=== PATIENT | male | born 1945 | race Caucasian/White ===

== ENCOUNTER → 2017-02-22 | Outpatient (CLI) | payer OTHER, MEDICARE ==
[~2017-02-22] MED LIST: FLV1 PO; FRS/40 PO; METO50TA16 PO; NAPR1TAB9 PO; PANT40TA PO; SIMV40TA2 PO; TYLOTC500 PO; WARF5TAB90 PO
[2017-02-22 13:43] LABS: INR 2.1 (0.9-1.1); PROTHROMBIN TIME (PATIENT) 23.3 SECONDS (9.0-12.0)
== END | disposition home or self-care (01) ==
LOC: C.LABBC 10:48
PROVIDERS: ATTEND Dentist Oral and Maxillofacial Surgery
DX: Z79.01 Long term (current) use of anticoagulants (principal); Z51.81 Encounter for therapeutic drug level monitoring

== ENCOUNTER → 2017-07-06 | Outpatient (CLI) | payer OTHER ==
[2017-07-06 10:40] LABS: BASO % 0.9 %; BASO ABS # 0.04 K/uL (0-0.2); COMPLETE YES; EOS % 3.9 %; HEMATOCRIT 45.2 % (42-52); IG% 0.2 %; LYMPH % 25.7 %; LYMPH ABS # 1.18 K/uL (1.2-3.4); MEAN CELL VOLUME 94.6 fL (80-100); MEAN CORPUSCULAR HGB CONC 33.8 g/dl (32-36); MEAN PLATELET VOLUME 11.2 fL (7.4-10.4); NEUT % 59.3 %; PLATELET COUNT 198 K/uL (130-400); RED BLOOD COUNT 4.78 M/uL (4.7-6.1); WHITE BLOOD COUNT 4.59 K/uL (4.8-10.8)
[2017-07-06 11:00] LABS: ALT/SGPT 35 U/L (12-78); BLOOD UREA NITROGEN 18 mg/dl (7-18); BUN/CREATININE RATIO 18.6 (10-20); CALCIUM 8.4 mg/dl (8.5-10.1); CARBON DIOXIDE 26 mmol/L (21-32); CHLORIDE 105 mmol/L (98-107); CHOLESTEROL 156 mg/dl (0-200); CREATININE 0.96 mg/dl (0.60-1.40); GLUCOSE 93 mg/dl (70-99); POTASSIUM 4.2 mmol/L (3.5-5.1); SODIUM 138 mmol/L (136-145)
[2017-07-06 11:11] LABS: ALB/GLOB RATIO 1.2 (0.9-2); ALKALINE PHOSPHATASE 66 U/L (45-117); AST/SGOT 28 U/L (15-37); HDL CHOLESTEROL 39 mg/dl; LDL CHOLESTEROL CALCULATED 92 mg/dl; PROSTATE SPECIFIC ANTIGEN 0.757 ng/ml (0.000-4.000); TRIGLYCERIDES 127 mg/dl (0-150); VERY LOW DENSITY LIPOPROT CALC 25 mg/dl
[2017-07-06 13:20] LABS: ESTIMATED AVERAGE GLUCOSE 108 mg/dl; HA1C FLAG Normal (Normal)
== END | disposition home or self-care (01) ==
LOC: C.LABBC 08:51
PROVIDERS: ATTEND Internal Medicine
DX: Z11.59 Encounter for screening for other viral diseases (principal); I10 Essential (primary) hypertension; G47.33 Obstructive sleep apnea (adult) (pediatric); E78.5 Hyperlipidemia, unspecified; I48.2 Chronic atrial fibrillation; K22.2 Esophageal obstruction; Z68.41 Body mass index [BMI] 40.0-44.9, adult; Z79.01 Long term (current) use of anticoagulants

== ENCOUNTER → 2017-10-16 | Outpatient (CLI) | payer OTHER ==
--- NOTE | 2017-10-16 12:51 | DIAGNOSTIC IMAGING REPORT ---
TWO VIEW CHEST CLINICAL HISTORY: Cough. FINDINGS: PA and lateral chest radiographs are compared to study dated 03/27/2015. The heart is markedly enlarged and there is atherosclerotic calcification of the thoracic aorta the pulmonary vasculature is noncongested. Patchy airspace consolidation is seen in the right middle lobe. The left lung is grossly clear noting dependent atelectasis. No pleural effusion is identified. There is no pneumothorax. The skeletal structures are osteopenic. The bony thorax appears intact. Degenerative change is seen throughout the thoracic spine. IMPRESSION: 1. Findings are consistent with right middle lobe pneumonia. Radiographic follow-up to resolution is recommended. 2. Cardiomegaly without radiographic evidence of congestive failure. Electronically signed by: Max Mosher M.D. 10/16/2017 12:50 PM Dictated Date/Time: 10/16/2017 12:49 PM
== END | disposition home or self-care (01) ==
LOC: C.RADBC 12:36
PROVIDERS: ATTEND Nurse Practitioner Adult Health
DX: R05 Cough (principal)

== ENCOUNTER → 2017-11-06 | Outpatient (CLI) | payer OTHER ==
--- NOTE | 2017-11-06 12:13 | DIAGNOSTIC IMAGING REPORT ---
CHEST 2 VIEWS ROUTINE HISTORY: Pneumonia. Follow-up. COMPARISON: Chest 10/16/2017. FINDINGS: Near complete resolution of the right middle lobe airspace opacity consistent with a resolving pneumonia. No new focal lung consolidations. The left lung is clear. The heart remains mildly enlarged. No pleural effusions. No pneumothorax. IMPRESSION: Near complete resolution of the right middle lobe opacity consistent with a resolving pneumonia. Electronically signed by: Aguilar Linder M.D. 11/06/2017 12:11 PM Dictated Date/Time: 11/06/2017 12:10 PM
== END | disposition home or self-care (01) ==
LOC: C.RADBC 11:44
PROVIDERS: ATTEND Nurse Practitioner Adult Health
DX: J18.9 Pneumonia, unspecified organism (principal)

== ENCOUNTER → 2017-12-14 | Outpatient (CLI) | payer OTHER ==
[2017-12-14 11:05] LABS: HEMOGLOBIN 15.7 g/dL (14.0-18.0); MEAN CELL VOLUME 95.7 fL (80-100); MEAN CORPUSCULAR HEMOGLOBIN 33.4 pg (25-34); MEAN CORPUSCULAR HGB CONC 34.9 g/dl (32-36); MEAN PLATELET VOLUME 11.2 fL (7.4-10.4); PLATELET COUNT 172 K/uL (130-400); RED CELL DISTRIBUTION WIDTH SD 49.5 fL (36.4-46.3); WHITE BLOOD COUNT 4.65 K/uL (4.8-10.8)
[2017-12-14 11:28] LABS: BLOOD UREA NITROGEN 16 mg/dl (7-18); CALCIUM 8.3 mg/dl (8.5-10.1); CARBON DIOXIDE 28 mmol/L (21-32); CREATININE 0.83 mg/dl (0.60-1.40); GLUCOSE 87 mg/dl (70-99); POTASSIUM 4.1 mmol/L (3.5-5.1); SODIUM 138 mmol/L (136-145)
== END | disposition home or self-care (01) ==
LOC: C.LABBC 08:38
PROVIDERS: ATTEND Internal Medicine Interventional Cardiology
DX: Z01.818 Encounter for other preprocedural examination (principal); Z79.01 Long term (current) use of anticoagulants

== ENCOUNTER 2017-12-21 06:27 | Day surgery (SDC) | payer OTHER ==
[~2017-12-21] VITALS: Ht 182.9 cm; Wt 127.1 kg
[~2017-12-21 06:27] MED LIST changes: +SODIUM CHLORIDE 0.9% 1000ML 1,000 ML IV SCH
[2017-12-21 06:52] VITALS: BP 148/87; PULSE 68; TEMP 36.6; O2SAT 96; Ht 182.9 cm; Wt 127.1 kg
[2017-12-21] MEDS ORDERED: LIDOCAINE HCL 1% 20 ML VIAL ONE (07:18)
[2017-12-21] MEDS ORDERED: LIDOCAINE/EPINEPHRINE 1% INJ 50 ML VIAL ONE ×2 (07:18→07:21)
[2017-12-21] MEDS ORDERED: SODIUM BICARB 8.4% INJ 50 MEQ/50 ML SYR IV ONE (07:19)
[2017-12-21] MEDS ORDERED: MIDAZOLAM HCL 1 MG/ML 2ML VIAL ONE (07:19)
[2017-12-21] MEDS ORDERED: FENTANYL CITRATE INJ 50 MCG/1 ML 2 ML VIAL ONE (07:19)
--- NOTE | 2017-12-21 07:19 | History and Physical ---
History & Physical Date Dec 21, 2017. Chief Complaint Venous insufficiency History of Present Illness Mr. Starr is a very pleasant 72-year-old white male with a history of Chronic Atrial Fibrillation on coumadin, Obesity, Hypertension, Dyslipidemia, Hyperhomocysteinemia with prior DVT, Hiatal Hernia s/p balloon dilatation of Schatzki's ring, Osteoarthritis here today for continued management of her chronic venous insufficiency. Patient previously seen for worsening bilateral lower edema despite increasing lasix, compression stockings. He typically takes his Lasix 3 days a week. Venous reflux ultrasound showed dilated/refluxing bilateral GSVs and SSVs. Past Medical/Surgical History Medical Problems: (1) Acute Venous Embolism & Thrombosis Deep Vessels Distal Le (2) Atrial Fibrillation (3) Diverticulosis Colon (W/O Ment Of Hemorrhage) (4) Hyperlipidemia Nec/Nos Surgical Problems: (1) Knee Joint Replacement Status Allergies Coded Allergies: No Known Allergies (Verified , 12/21/17) Home Medications Scheduled Furosemide (Lasix), 40 MG PO WK Metoprolol Tartrate (Lopressor) (Lopressor), 50 MG PO BID Naproxen (Aleve), 440 MG PO DAILY Pantoprazole (Protonix), 40 MG PO QAM Simvastatin (Zocor), 40 MG PO MWF Warfarin Sodium (Coumadin), 5 MG PO QPM Physical Examination Skin: warm/dry Head: normocephalic Respiratory/Chest: lungs clear, normal breath sounds Cardiovascular: + irregularly irregular Abdomen / GI: normal bowel sounds Extremities: + pertinent finding (lower extremity edema) Diagnosis Chronic venous insufficiency ASA Classification: ASA Class II Plan of Treatment Bilateral GSV RFA
--- NOTE | 2017-12-21 07:20 | Pre Sedation Assessment ---
Pre Sedation Assessment General Date of Sedation: Dec 21, 2017. Vital Signs Past 12 Hours Date Time Temp Pulse Resp B/P (MAP) Pulse Ox O2 Delivery O2 Flow Rate FiO2 12/21/17 06:52 36.6 68 20 148/87 (107) 96 Room Air Review Cardiovascular: no edema, + irregularly irregular Lungs: chest non-tender, lungs clear Pre-Sedation Airway Assessment Smoking Status: Never Smoker Hx of Sleep Apnea: Yes Hx of difficult intubation: No Short Thick Neck: No Oral Cavity: Capped Teeth Mallampati Classification: Class III ASA Classification: Class II NPO Status Date of Last Intake of Fluids: Dec 20, 2017 Time of Last Intake of Fluids: 1999 Date of Last Intake of Solids: Dec 20, 2017 Time of Last Intake of Solids: 1999 Procedure Planning Contraindications for Sedation: None Current Medications Reviewed: Yes Notes The planned sedation has been discussed with the patient. Informed Consent was obtained. I have identified the patient, determined the appropriateness of sedation and have assessed the patient immediately prior to the procedure. All medicine(s) and interventions are by my order.
[2017-12-21] MEDS ORDERED: LIDOCAINE HCL 1% 20 ML VIAL INJ ONE (09:12)
[2017-12-21] MEDS ORDERED: ORM MISCELLANEOUS MED XX ONE (09:15)
--- NOTE | 2017-12-21 09:16 | Post Sedation Assessment ---
Post Sedation Assessment General Date of Sedation Dec 21, 2017. Vital Signs: Vital Signs Past 12 Hours Date Time Temp Pulse Resp B/P (MAP) Pulse Ox O2 Delivery O2 Flow Rate FiO2 12/21/17 09:10 66 16 133/83 95 Room Air 12/21/17 09:05 Mask 12/21/17 09:00 Mask 12/21/17 08:55 Mask 12/21/17 08:50 Mask 12/21/17 08:45 Mask 12/21/17 08:40 Mask 12/21/17 08:35 Mask 12/21/17 08:30 Mask 12/21/17 08:25 Mask 12/21/17 08:20 Mask 12/21/17 07:59 Mask 12/21/17 06:52 36.6 68 20 148/87 (107) 96 Room Air Post Procedure Recovery Score Activity: (2) Moves 4 extremities * Respiration: (2) Deep breath/cough Circulation: (2) +/-20% PreAnes Value Consciousness: (2) Fully Awake Oxygen Saturation: (2) > 92% On Room Air Post Anesthesia Score: 10 Discharge Sedation Level of Care: Fast Track Phase II Post Sedation Plan On clinical assessment, the patient appears to have tolerated the sedation without complications. Patient is recovering as anticipated. Patient will continue to be monitored by nursing and may be discharged when sedation discharge criteria are met per below protocol. Upon Completions of procedure and additional 15 minutes continue every 5 minute vital signs and the P.A.R. score; then discharge to a Phase I or Fast Track to Phase II per the following guidelines: * Discharge Patient to appropriate Phase II area if PAR is 8 or greater or return to pre- procedure baseline. The post - procedure orders will be as directed. * If PAR score is less than 8 or not return to pre-procedure baseline then patient will follow Phase I monitoring till PAR is reached for Phase II. The Phase I may be done in procedure room or may call to secure a Phase I area. * If naloxone or flumazenil are used for reversal, hold in Phase I for an additional 60 -120 minutes before discharge to Phase II. Please call the Sedation Physician to re-evaluate and complete post-note for discharge to Phase II area. Do NOT discharge from procedure sedation or Phase 1 until post- sedation evaluation note is complete by procedure /sedation MD Sedation Discharge Instructions to be given to the patient at discharge to home.
--- NOTE | 2017-12-21 09:19 | [facility] Operative Report ---
Operative Report Operative Date Dec 21, 2017. Pre-Operative Diagnosis Venous Insufficiency Post-Operative Diagnosis Venous Insufficiency Procedure(s) Performed Bilateral Lower Extremity Greater Saphenous Vein Radio Frequency Ablation Surgeon Dr. Mcleod Solar Energy Engineer Surgeon(s) Dr. Mcleod Estimated Blood Loss 5 ml Findings Dilated bilateral GSV with distal varices Specimens none Drains None Anesthesia Type Local Complication(s) none Disposition no Recovery Room / PACU Description of Procedure BILATERAL GSV RADIOFREQUENCY ABLATION US guided access Left GSV below the knee. Catheter inserted, 2.5 cm from SFJ. Tumescent injected. US confirmed not in deep system. 4:40, 14 cycles of RFA right GSV. No complications. Patient tolerated well. US confirmed no DVT post procedure. US guided access Right GSV below the knee. Unable to pass catheter to more proximal vessel due to tortuosity/spasm 2nd access site in Right thigh Catheter inserted, 2.9 cm from SFJ. Tumescent injected. US confirmed not in deep system. 2:00, 6 cycles of RFA right GSV. No complications. Patient tolerated well. US confirmed no DVT post procedure. SUMMARY: 1. Successful bilateral GSV RFA I attest to the content of the Intraoperative Record and any orders documented therein. Any exceptions are noted below.
--- NOTE | 2017-12-21 09:21 | Discharge Instructions ---
Discharge Instructions Procedure Procedure Date: Dec 21, 2017. Reason for Visit: Venous Insufficiency. Discharge Discharge Date: Dec 21, 2017. Discharge Diagnosis: Venous insufficiency Last Recorded Wt (Kilograms): 127.1 Anesthesia Post Anesthesia Instructions: If you have had General Anesthesia or IV Sedation: * Do not drive today. * Resume driving when surgeon permits. * Do not make important decisions or sign legal documents today. * Call surgeon for: 1. Temperature elevations greater than 101 degrees F. 2. Uncontrollable pain. 3. Excessive bleeding. 4. Persistent nausea and vomiting. 5. Medication intolerance (nausea, vomiting or rash). * For nausea and vomiting use only clear liquids such as: tea, soda, bouillon until nausea subsides, then gradually increase diet as tolerated. * If you have any concerns or questions, call your surgeon's office. If physician is unavailable and it is an emergency, call 911 or go to the nearest emergency room. Instructions Activity Recommendations: resume regular activity Recommended Home Diet: resume previous diet, low sodium, low cholesterol Allergies: Coded Allergies: No Known Allergies (Verified , 12/21/17) Follow Up Additional Instructions: Follow instructions as outlined in paperwork from Dr. Mcleod' office. Up walking today. Follow up Ultrasound as scheduled. KIM wrap until scheduled ultrasound Post ultrasound wear compression stockings indefinitely. Any severe pain, present to the emergency room for evaluation for DVT. Follow-up with: As scheduled Beto Morrison Recommendations: Call your doctor if: * Temperature above 101 degrees * Pain not relieved by pain medicine ordered * There is increased drainage or redness from any incision * You have any unanswered questions or concerns. Your Doctors Instructions noted above were prepared by provider Manuel Mcleod. Patient Signature Section: Patient Instructions Signature Page Patrick Starr Patient (or Guardian) Signature/Date: I have read and understand the instructions given to me by my caregivers. Caregiver/RN/Doctor Signature/Date: The above-named patient and/or guardian has received patient instructions on this date. + Original Patient Signature Page (only) stays with chart. Please make copy for patient.
[2017-12-21 09:30] VITALS: BP 108/63; PULSE 64; TEMP 36.6; O2SAT 95
[2017-12-21 10:00] VITALS: BP 115/63; PULSE 66; TEMP 36.6; O2SAT 96
--- NOTE | 2017-12-21 13:54 | DIAGNOSTIC IMAGING REPORT ---
INTRAOPERATIVE ULTRASOUND CLINICAL HISTORY: Ultrasound guidance for venous ablation. FINDINGS: 3 sonographic images from a right lower extremity venous ablation procedure are presented. The imaged portions of the common femoral vein and the greater saphenous vein at the junction with the common femoral vein appear patent. There is 2.9 cm from the ablation site to the junction with the common femoral vein. The research chemical engineer was present during the procedure. IMPRESSION: Intraoperative images from right lower extremity venous ablation as above. See operative report for detailed findings. Electronically signed by: Max Mosehr M.D. 12/21/2017 1:53 PM Dictated Date/Time: 12/21/2017 1:50 PM
== END 2017-12-21 10:25 | disposition home or self-care (01) ==
LOC: C.ACU 06:27
PROVIDERS: ATTEND Internal Medicine Interventional Cardiology
DX: I87.2 Venous insufficiency (chronic) (peripheral) (principal); I48.2 Chronic atrial fibrillation; E66.9 Obesity, unspecified; I10 Essential (primary) hypertension; E78.5 Hyperlipidemia, unspecified; Z86.718 Personal history of other venous thrombosis and embolism; M19.90 Unspecified osteoarthritis, unspecified site; Z79.01 Long term (current) use of anticoagulants; Z98.890 Other specified postprocedural states

== ENCOUNTER 2025-05-20 09:02 | Observation (INO) ==
--- NOTE | 2025-05-20 09:42 | Emergency Department Note ---
Impression & Plan Chest pain, Acute pain of left shoulder, Ambulatory dysfunction ED Provider Note HISTORY OF PRESENT ILLNESS: Patient is a 79-year-old male presenting with chest pain. Patient reports that he fell 6 days ago. He was evaluated in the emergency department and did not have any acute traumatic injuries. He states that he had lost his footing and fell, landing and striking the left side of his body against a cement wall and hitting his left hip on a step. He is on aspirin and warfarin. He states that today he woke up and had significant pain in his chest and upper back region. He locates the pain in the substernal region of his chest. Denies any shortness of breath. He denies any lightheadedness or dizziness. He states he had difficulties getting around today secondary to increasing pain in his hip. Denies any abdominal pain, nausea or vomiting. He reports he took a dose of oxycodone at 6 AM with little relief in his symptoms. He denies any lightheadedness or dizziness. Denies any headache or changes in vision. Patient reports he has been ambulating at home with a walker since his fall. ROS: as above PHYSICAL EXAM: Constitutional: Patient appears in no acute distress. HENT: Head: Normocephalic and atraumatic. Eyes: EOMI, PERRL Mouth/Throat: Mucous membranes moist. Neck: Trachea midline. Neck supple. No midline cervical spine tenderness to palpation. Cardiovascular: Irregular rhythm. No murmurs, rubs or gallops. Intact distal pulses. Pulmonary/Chest: No respiratory distress. Breath sounds clear and equal bilaterally. No wheezes or rales. Left chest wall is tender to palpation. Abdominal: Abdomen soft, no tenderness, rebound or guarding. Musculoskeletal: No edema, tenderness or deformity noted. Skin: Warm and dry. Ecchymosis to the left upper anterior chest wall. Ecchymosis to the left lateral hip. Psychiatric: Appropriate mood and affect for situation. Neurological: Alert and keenly responsive. CN II-XII grossly intact, moving all extremities equally and fully. MDM: - Vitals signs showed hypertension and tachycardia. - History obtained via patient. History as above. - Chronic conditions affecting care: HTN; HLD; LAURA; GERD; Afib - Differential diagnoses include, but are not limited to: Acute coronary syndrome; pulmonary embolism; dissection; tension pneumothorax; esophageal rupture; pneumonia; rib fracture - Order placed for continuous cardiac monitoring. At this time, monitor showed rate of 98 bpm with irregular rhythm, per my interpretation. - External medical records reviewed. CT abdomen/pelvis obtained on 05/16/2025 was reviewed. Patient noted to have gluteal muscle hematoma. - EKG image interpreted by myself showed atrial fibrillation. Rate 98 bpm. QT 398. No acute ischemic changes. Not have a right bundle branch block. - Laboratory workup interpreted by myself showed slight leukocytosis (WBC 10.81); slight anemia (Hgb 13.1); elevated INR (1.2); stable electrolytes; normal troponin; normal AST/ALT; normal lipase; elevated bilirubin (1.4) - CXR image interpreted by myself is negative for pneumothorax, per my interpretation. Radiology notes cardiomegaly. - CT chest with IV contrast shows a subacute/healing fracture of the left anterior lateral sixth rib. No other acute pathology. - Patient given 50 mcg IV fentanyl in ER. On reassessment, he still complaining of pain in his left shoulder. X-ray of the left shoulder was ordered. - Discussed results with the patient. He has been ambulating with a walker since his fall, so unsure if his bilateral shoulder pain is secondary to using the walker. However, the patient reports that the oxycodone that he was prescribed previously has not been helping his pain and he feels like he cannot tolerate this at home. Will discuss case with hospitalist service. - Xray left shoulder negative for acute fracture or dislocation. Noted to have moderate to severe left shoulder osteoarthritis. - Discussion was had with registered nurse hh case manager about patient's case and need for admission - Hospitalist consulted for admission - Patient admitted to [facility] hospitalist service for further evaluation and management. ASSESSMENT AND PLAN: Diagnosis: Chest pain; acute left shoulder pain; ambulatory dysfunction Plan: Admit Past Med/Surg History Problem List (Updated 05/20/25 @ 12:41 by Desire Tadeo MD) Ambulatory dysfunction (Acute) Acute pain of left shoulder (Acute) Chest pain (Acute) Supratherapeutic INR (Acute) Hematoma of left buttock (Acute) Esophageal dysphagia JACK (dyspnea on exertion) Arthritis of foot History of colon polyps Family history of colonic polyps Encounter for pre-operative examination Rash Fever Suspected COVID-19 virus infection Colon polyps Atrial fibrillation, permanent (Acute) Venous insufficiency (Chronic) BMI 40.0-44.9, adult (Chronic) Hiatal hernia (Chronic) Vitamin D deficiency (Chronic) Elevated parathyroid hormone (Chronic) Elevated TSH (Chronic) GERD with stricture (Chronic) Chronic anticoagulation (Chronic) Severe obstructive sleep apnea (Chronic) Hyperlipidemia LDL goal <100 (Chronic) HTN (hypertension) (Chronic) Schatzki's ring (Chronic) Osteoarthritis (Chronic) Medical History Chronic venous insufficiency Schatzki's ring Osteoarthritis Chronic anticoagulation History of colonic polyps GERD (gastroesophageal reflux disease) no meds Deep vein thrombosis (DVT) S/P LEFT HILDA, 20 YEARS AGO, PT REMAINS ON COUMADIN (for a. fib) Sleep apnea non compliant with CPAP Hyperlipidemia Atrial fibrillation On Coumadin/metoprolol > no pacer > follows with [facility] History of colonoscopy History of total hip replacement BILATERAL Hx of total knee arthroplasty bilat S/P lumbar laminectomy History of esophagogastroduodenoscopy With dilatation History of discectomy lumbar History of herniorrhaphy Ventral hernia repair Family History Unknown Atrial fibrillation Father Myocardial infarction Brother Kidney disease Other No family history of adverse response to anesthesia Denies family history of Ovarian cancer Prostate cancer Diabetes Breast cancer Lung cancer Colorectal cancer Hypertension Stroke Social History Smoking Status: Never smoker Second Hand Exposure: No; Do You Dip or Chew Tobacco: No; Hx Alcohol Use: Yes Alcohol type: wine and hard liquor Alcohol Intake Frequency: 2-3 x/Week Alcohol Intake Frequency Comment: once a week Hx Substance Use: No Preferred Language: [place] Communication Ability: Effective Visual Impairment: No Limitations Hearing Ability: Normal Tobacco Curer Required: No Beliefs That Will Affect Care: None marital status: Current Living Situation: Spouse current occupational status: retired How many Children do You have: 2 Feels Safe at Home: Yes Childhood Exposure to Second-Hand Smoke: Yes Diet: regular Diet Comment: regular caffeine: Yes (iced tea) during the past year weight has: decreased > 10 lbs Dental Care, Regularly: Yes Physical Activity Frequency: 3-4 Times per Week Seatbelt Use: always Sunscreen Use: Yes Assistive Devices: Glasses Allergies Allergies Allergy/AdvReac Type Severity Reaction Status Date / Time No Known Drug Allergies Allergy Verified 05/20/25 11:39 Home Meds Home Medications Medication Instructions Recorded Confirmed cholecalciferol (vitamin D3) 25 25 mcg PO QAM 10/02/23 05/20/25 mcg (1,000 unit) capsule furosemide 40 mg tablet 40 mg PO DAILY PRN Edema 12/31/24 05/20/25 atorvastatin 40 mg tablet 40 mg PO QAM 05/20/25 05/20/25 pantoprazole 40 mg tablet,delayed 40 mg PO DAILYBB 05/20/25 05/20/25 release warfarin 5 mg tablet (Jantoven) 5 mg PO QPM 05/20/25 05/20/25 Previous Rx's Medication Instructions Recorded metoprolol tartrate 50 mg tablet 50 mg PO BID #180 tabs 12/26/22 Results & Data (ED) Vital Signs Vital Signs - 24 hr 05/20/25 08:43 05/20/25 08:45 05/20/25 09:22 Temperature 36.8 C 36.8 C Temperature Source Oral Oral Pulse Rate 103 H 98 H Pulse Rate [Right Finger] 108 H Respiratory Rate 17 16 Respiratory Effort / Characteristics Non-Labored Non-Labored Respiratory Depth Normal Normal Respiratory Pattern Regular Blood Pressure 148/83 H Blood Pressure [Right Arm] 148/83 H Blood Pressure Mean 104 Blood Pressure Mean [Right Arm] 104 Pulse Oximetry 97 93 Oxygen Delivery Method Room Air Room Air Sepsis Recent Fever Within 48 Hours No Sepsis New/Unexplained Change in Mental Status No Sepsis Action Taken by Nursing No Action Required 05/20/25 10:45 05/20/25 11:57 Temperature Temperature Source Pulse Rate Pulse Rate [Right Finger] 90 105 H Respiratory Rate 16 16 Respiratory Effort / Characteristics Respiratory Depth Respiratory Pattern Blood Pressure Blood Pressure [Right Arm] 134/82 168/98 H Blood Pressure Mean Blood Pressure Mean [Right Arm] 99 121 Pulse Oximetry 97 Oxygen Delivery Method Sepsis Recent Fever Within 48 Hours Sepsis New/Unexplained Change in Mental Status Sepsis Action Taken by Nursing Laboratory Data 05/20/25 09:30 05/20/25 09:30 Lab Results 05/20/25 Range/Units 09:30 WBC 10.81 H (4.8-10.8) K/ul RBC 4.01 L (4.70-6.10) M/uL Hgb 13.1 L (14.0-18.0) g/dl Hct 39.1 L (42.0-52.0) % MCV 97.5 (80.0-100.0) fL MCH 32.7 (25.0-34.0) pg MCHC 33.5 (32.0-36.0) g/dL RDW Std Deviation 46.5 H (36.4-46.3) fL RDW Coeff of Anna 13.1 (11.5-14.5) % Plt Count 210 (130-400) K/uL MPV 11.0 (9.4-12.4) fL Immature Gran % (Auto) 0.5 % Neut % (Auto) 84.2 % Lymph % (Auto) 5.8 % Parmer % (Auto) 8.3 % Eos % (Auto) 0.8 % Baso % (Auto) 0.4 % Neut # (Auto) 9.10 H (1.40-6.50) K/uL Lymph # (Auto) 0.63 L (1.20-3.40) K/uL Parmer # (Auto) 0.90 H (0.11-0.59) K/uL Eos # (Auto) 0.09 (0.00-0.50) K/uL Baso # (Auto) 0.04 (0.00-0.20) K/uL Immature Gran # (Auto) 0.05 (0.01-0.20) K/uL PT 12.4 H (9.0-12.0) Seconds INR 1.2 H (0.9-1.1) Sodium 139 (136-145) mmol/L Potassium 4.2 (3.5-5.1) mmol/L Chloride 104 (98-107) mmol/L Carbon Dioxide 27 (21-32) mmol/L Anion Gap 8 (3-11) BUN 16 (6-23) mg/dl Creatinine 0.72 (0.6-1.4) mg/dl Est Cr Clr Drug Dosing 118.6 ml/min eGFR 92.93 BUN/Creatinine Ratio 22.2 H (10-20) Glucose 102 H (70-99(Fasting)) mg/dl Calcium 8.9 (8.6-10.3) mg/dl Total Bilirubin 1.4 H (0.2-1.0) mg/dl AST 24 (13-39) U/L ALT 19 (7-52) U/L Alkaline Phosphatase 60 (34-104) U/L Troponin I High Sens 15.1 (0-20) pg/ml Total Protein 6.9 (6.0-8.3) gm/dl Albumin 3.7 (3.4-5.0) gm/dl Globulin 3.2 (2.5-4.0) gm/dl Albumin/Globulin Ratio 1.2 (0.9-2) Lipase 15 (11-82) U/L Administered Medications Discontinued Medications Fentanyl Citrate (Fentanyl Citrate Pf 100 Mcg/2 Ml Vial) 50 mcg IV NOW STA Stop: 05/20/25 09:19 Last Admin: 05/20/25 09:34 Dose: 50 mcg Documented By: erick Ioversol (Optiray 320 100ml) 94 ml IV ONCE ONE Stop: 05/20/25 10:58 Last Admin: 05/20/25 10:57 Dose: 94 ml Documented By: GIANNI Imaging Data Radiologist's Impression: Chest X-Ray 05/20/25 09:18 XR chest 1V portable HISTORY: 79 years-old Male Chest pain, nonspecific COMPARISON: 11/06/2017 TECHNIQUE: AP view of the chest FINDINGS: Cardiac silhouette is enlarged. No pneumothorax, pleural effusion or overt pulmonary edema. IMPRESSION: Cardiomegaly without acute process. ACT 112: Negative or not required by law. The above report was generated using voice recognition software. It may contain grammatical, syntax or spelling errors. Electronically signed by: Juan C Meredith M.D. 05/20/2025 9:[address] 05/20/25 09:59 CT SCAN OF THE CHEST WITH IV CONTRAST CLINICAL HISTORY: Fall. Chest pain. COMPARISON STUDY: Chest x-ray dated 05/20/2025 TECHNIQUE: Following the IV administration of 94 cc of Optiray 320, CT scan of the thorax was performed from the thoracic inlet to the upper abdomen. Images are reviewed in the axial, sagittal, and coronal planes. IV contrast was administered without complication. A dose lowering technique was utilized adhering to the principles of ALARA. There is streak artifact from the left arm which could not be elevated above the chest. The examination is compromised by motion artifact. CT DOSE: 1138.86 mGy.cm FINDINGS: Thyroid: Imaged portions of the thyroid gland are normal in size and attenuation. Thoracic aorta: There is atherosclerotic calcification of the thoracic aorta, which is normal in caliber and demonstrates standard 3-vessel arch anatomy. No dissection is seen. Pulmonary vasculature: The pulmonary trunk is normal in caliber. There are no filling defects identified in the central pulmonary vessels to indicate pulmonary embolus. Note that this examination was not protocoled for evaluation of the pulmonary arteries. Heart: The heart is enlarged and without pericardial effusion. The coronary arteries are densely calcified. Lungs and pleural spaces: Evaluation of the lung parenchyma is degraded by motion artifact. There is no airspace consolidation, pleural effusion, or pneumothorax. Secretions are noted in the trachea. There is bibasilar scarring/atelectasis. There are scattered calcified granulomas. Mediastinum: There is no mediastinal hematoma or lymphadenopathy. Brenda: Clear. Axillae: There is no axillary lymphadenopathy. Upper abdomen: Scattered hepatic cysts measuring up to 3.7 cm. Additional subcentimeter hepatic hypodensities also likely represent cysts but are too small for definitive characterization. A tiny hiatal hernia is noted. See report of abdominal CT performed concurrently for detailed intra-abdominal findings. Skeletal structures: The skeletal structures are osteopenic. There is a subacute/healing fracture of the left anterolateral sixth rib. No additional acute or subacute fracture is suspected involving the bony thorax. There are chronic/healed right-sided rib fractures. Degenerative change is seen in the shoulders and thoracic spine. Advanced degenerative change is seen at the sternoclavicular joints. No lytic or blastic bony lesions are seen. IMPRESSION: 1. There is a subacute/healing fracture of the left anterolateral 6th rib. 2. No additional acute or subacute fracture is seen. 3. There is no airspace consolidation, pleural effusion, or pneumothorax. 4. Cardiomegaly noting advanced coronary artery atherosclerosis. 5. Additional findings as above. ACT 112: Negative or not required by law. Electronically signed by: Max Mosher M.D. 05/20/2025 11:18 AM Shoulder X-Ray 05/20/25 12:08 XR shoulder LT min 2V routine CLINICAL HISTORY: Left shoulder pain s/p fall COMPARISON: Left shoulder radiographs May 26, 2011. FINDINGS: Alignment of the left shoulder is anatomic. No acute fractures are identified. There is moderate to severe osteoarthritis of the left acromioclavicular and glenohumeral joints. There are no osseous lesions. IMPRESSION: 1. No fracture or dislocation within the left shoulder. 2. Moderate to severe left shoulder osteoarthritis. ACT 112: Negative or not required by law. Electronically signed by: Grant Ricks M.D. 05/20/2025 12:33 PM Discharge Plan Visit Data Chief Complaint: Fall Stated Complaint: FALL ED Provider: Desire Tadeo Discharge Problem: Chest pain, Acute pain of left shoulder, Ambulatory dysfunction Condition: Fair Forms Stand Alone Forms: My [employer] Prescriptions Prescriptions: No Action metoprolol tartrate 50 mg tablet 50 mg PO BID Qty: 180 3RF cholecalciferol (vitamin D3) 25 mcg (1,000 unit) capsule 25 mcg PO QAM atorvastatin 40 mg tablet 40 mg PO QAM warfarin [Jantoven] 5 mg tablet 5 mg PO QPM pantoprazole 40 mg tablet,delayed release (DR/EC) 40 mg PO DAILYBB furosemide 40 mg tablet 40 mg PO DAILY PRN (Reason: Edema) Rx Instructions: TAKE ONE TABLET BY MOUTH EVERY DAY NEEDED FOR EDEMA Referrals Referrals: Kimmie Funez DO [Primary Care Provider] -
--- NOTE | 2025-05-20 09:48 | XRay Report ---
XR chest 1V portable HISTORY: 79 years-old Male Chest pain, nonspecific COMPARISON: 11/06/2017 TECHNIQUE: AP view of the chest FINDINGS: Cardiac silhouette is enlarged. No pneumothorax, pleural effusion or overt pulmonary edema. IMPRESSION: Cardiomegaly without acute process. ACT 112: Negative or not required by law. The above report was generated using voice recognition software. It may contain grammatical, syntax o r spelling errors. Electronically signed by: Juan C Meredith M.D. 05/20/2025 9:47 AM
[2025-05-20 09:58] LABS: Hematocrit (blood only) 39.1 % (42.0-52.0); Hemoglobin 13.1 g/dl (14.0-18.0); Immature Granulocytes # (auto) 0.05 K/uL (0.01-0.20); Immature Granulocytes % (auto) 0.5 %; Mean Corpuscular Hemoglobin 32.7 pg (25.0-34.0); Mean Corpuscular Volume 97.5 fL (80.0-100.0); Platelet Count 210 K/uL (130-400); RDW Standard Deviation 46.5 fL (36.4-46.3); Red Blood Count 4.01 M/uL (4.70-6.10); White Blood Count 10.81 K/ul (4.8-10.8)
[2025-05-20 10:14] LABS: Alanine Aminotransferase 19.0 U/L (7-52); Albumin Globulin Ratio 1.2 (0.9-2); Alkaline Phosphatase 60.0 U/L (34-104); Anion Gap 8.0 (3-11); Bilirubin,Total 1.4 mg/dl (0.2-1.0); Blood Urea Nitrogen 16.0 mg/dl (6-23); Calcium 8.9 mg/dl (8.6-10.3); Carbon Dioxide 27.0 mmol/L (21-32); Chloride 104.0 mmol/L (98-107); Creatinine Clr Calc Pharmacy 118.6 ml/min; Globulin 3.2 gm/dl (2.5-4.0); Glucose 102.0 mg/dl (70-99(Fasting)); Lipase 15.0 U/L (11-82); Potassium 4.2 mmol/L (3.5-5.1); Sodium 139.0 mmol/L (136-145); Total Protein 6.9 gm/dl (6.0-8.3)
[2025-05-20 10:25] LABS: INR 1.2 (0.9-1.1); Prothrombin Time 12.4 Seconds (9.0-12.0)
[2025-05-20] MEDS: OPTIRAY 320 100ml IV ONE (10:57)
--- NOTE | 2025-05-20 11:19 | CT Scan Report ---
CT SCAN OF THE CHEST WITH IV CONTRAST CLINICAL HISTORY: Fall. Chest pain. COMPARISON STUDY: Chest x-ray dated 05/20/2025 TECHNIQUE: Following the IV administration of 94 cc of Optiray 320, CT scan of the thorax was perform ed from the thoracic inlet to the upper abdomen. Images are reviewed in the axial, sagittal, and isha nal planes. IV contrast was administered without complication. A dose lowering technique was utilize d adhering to the principles of ALARA. There is streak artifact from the left arm which could not be elevated above the chest. The examination is compromised by motion artifact. CT DOSE: 1138.86 mGy.cm FINDINGS: Thyroid: Imaged portions of the thyroid gland are normal in size and attenuation. Thoracic aorta: There is atherosclerotic calcification of the thoracic aorta, which is normal in sonia russ and demonstrates standard 3-vessel arch anatomy. No dissection is seen. Pulmonary vasculature: The pulmonary trunk is normal in caliber. There are no filling defects identif ied in the central pulmonary vessels to indicate pulmonary embolus. Note that this examination was no t protocoled for evaluation of the pulmonary arteries. Heart: The heart is enlarged and without pericardial effusion. The coronary arteries are densely calc ified. Lungs and pleural spaces: Evaluation of the lung parenchyma is degraded by motion artifact. There is no airspace consolidation, pleural effusion, or pneumothorax. Secretions are noted in the trachea. Th ere is bibasilar scarring/atelectasis. There are scattered calcified granulomas. Mediastinum: There is no mediastinal hematoma or lymphadenopathy. Brenda: Clear. Axillae: There is no axillary lymphadenopathy. Upper abdomen: Scattered hepatic cysts measuring up to 3.7 cm. Additional subcentimeter hepatic hypod ensities also likely represent cysts but are too small for definitive characterization. A tiny hiatal hernia is noted. See report of abdominal CT performed concurrently for detailed intra-abdominal find ings. Skeletal structures: The skeletal structures are osteopenic. There is a subacute/healing fracture of the left anterolateral sixth rib. No additional acute or subacute fracture is suspected involving the bony thorax. There are chronic/healed right-sided rib fractures. Degenerative change is seen in the shoulders and thoracic spine. Advanced degenerative change is seen at the sternoclavicular joints. No lytic or blastic bony lesions are seen. IMPRESSION: 1. There is a subacute/healing fracture of the left anterolateral 6th rib. 2. No additional acute or subacute fracture is seen. 3. There is no airspace consolidation, pleural effusion, or pneumothorax. 4. Cardiomegaly noting advanced coronary artery atherosclerosis. 5. Additional findings as above. ACT 112: Negative or not required by law. Electronically signed by: Max Mosher M.D. 05/20/2025 11:18 AM
--- NOTE | 2025-05-20 12:22 | History & Physical Report ---
<Statement entered by Jm Taylor, - 05/20/25 14:48> Seen and examined at bedside -L thigh hematoma secondary to mechanical fall last week -Hgb stable -His COumadin clinic advised he resume coumadin and his first dose was yesterday -Cautiously continue home coumadin given risks of stroke and history of VTE -Recheck Hgb in AM -PT/OT 30 minutes were spent in care of patient. Date of Service May 20, 2025 Assessment & Plan (1) Acute pain of left shoulder: (2) Ambulatory dysfunction: (3) Hematoma of left buttock: (4) Atrial fibrillation, permanent: (5) Hyperlipidemia LDL goal <100: (6) GERD with stricture: Plan This is a 79 y/o male with PAF on chronic AC, remote hx of DVT after HILDA, sleep apnea (not on CPAP), dyslipidemia, chronic venous insufficiency, and other history as outlined below who presents to the ED today with shoulder and chest pain. Pt with a mechanical fall four days ago, landing on his left side, and resultant left gluteal hematoma. INR was supratherapeutic in the ED last week, likely related to several supplements that he had been taking for possible neuropathy (and which he has since stopped). He has been using a walker to ambulate at home for the last few days. He presented to the ED today with bilate ral shoulder and chest pain. Work-up in the ED showed a subacute/healing anterolateral left sixth rib fracture, troponin was normal. INR today was 1.2 - pt resumed warfarin yesterday, he denies taking aspirin. Referred for additional evaluation due to intractable pain and ambulatory dysfunction. #Mechanical Fall #Left gluteal hematoma #Subacute/healing left anterolateral 6th rib fracture #Left shoulder pain - Observe in med surg - PT/OT evaluations - Pain control - prn oxycodone, lidocaine patch, scheduled acetaminophen - Fall precautions #PAF on chronic anticoagulation - Warfarin held until yesterday - INR today was 1.2 - Will continue warfarin at the recommended 5 mg daily and monitor H&H - stable from last week's ED visit today. Outpatient anticoagulation clinic notes were reviewed in [facility]. - Continue metoprolol BID #Dyslipidemia - Chronic, stable - continue statin #GERD with hx of stricture - Chronic, stable - continue PPI Pt seen and reviewed with collaborating physician, Dr. Taylor. Plan of care discussed and as outlined above. updated at the bedside - all questions a nswered. Code status: full code DVT prophylaxis: on chronic warfarin, SCDs since INR subtherapeutic I spent a total of 82 minutes coordinating, documenting, and providing care for this patient excluding time spent in the performance of separately billed services or time spent by another provider/QHP. Anastacia Hurst PA-C History of Present Illness Chief Complaint: recent fall, chest/shoulder pain Primary Care Provider: Kimmie Funez DO This is a 79 y/o male with PAF on chronic AC, remote hx of DVT after HILDA, sleep apnea (not on CPAP), dyslipidemia, chronic venous insufficiency, and other history as outlined below who presents to the ED today with shoulder and chest pain. Four days ago, pt was bringing in groceries when he lost his balance on the steps into the house and fell into a concrete wall on his left side. He was seen in the ED late that night (early on 05/16) and found to have a supratherapeutic INR. He was noted to have possible left gluteal hemorrhage vs. hematoma via CT, ED provider felt active hemorrhage unlikely so pt was given 2.5 mg oral vitamin K and discharged home with a walker. Pt spoke with anticoagulation clinic later that day and warfarin was held for two days. Pt reports restarting it yesterday. He has noted that the hematoma seems to be increasing in size daily. He spoke with an on-call provider over the weekend who reassured pt that this was to be expected and prescribed oxycodone since pt felt like Tylenol was not adequately controlling his pain. He has been using the walker to ambulate at home, which he does not usually use. Today, when he got up, he noted significant pain in his bilateral shoulders and arms and across his chest. Because of this pain, he came to the ED for evaluation. Currently the chest pain has resolved but he has persistent pain in the left shoulder, which he currently rates as 9/10 even after a dose of IV fentanyl in the ED. He has taken 9 of the 10 prescribed oxycodone tablets over the last two days. Pt denies significant shortness of breath, FARIA, dizziness, N/V/D, constipation, urinary symptoms. His appetite is at baseline. He reports using the prn furosemide approximately every other day for edema. Allergies Allergy/AdvReac Type Severity Reaction Status Date / Time No Known Drug Allergies Allergy Verified 05/20/25 11:39 Home Medications Medication Instructions Recorded Confirmed Type metoprolol tartrate 50 mg tablet 50 mg PO BID #180 tabs 12/26/22 05/20/25 Rx cholecalciferol (vitamin D3) 25 50 mcg PO QAM 10/02/23 05/20/25 History mcg (1,000 unit) capsule furosemide 40 mg tablet 40 mg PO DAILY PRN Edema 12/31/24 05/20/25 History atorvastatin 40 mg tablet 40 mg PO QAM 05/20/25 05/20/25 History oxycodone 5 mg capsule 5 mg PO Q6 PRN Pain 05/20/25 05/20/25 History pantoprazole 40 mg tablet,delayed 40 mg PO DAILYBB 05/20/25 05/20/25 History release warfarin 5 mg tablet (Jantoven) 5 mg PO QPM 05/20/25 05/20/25 History Past Med/Surg History Problem List (Updated 05/20/25 @ 12:41 by Desire Tadeo MD) Ambulatory dysfunction (Acute) Acute pain of left shoulder (Acute) Chest pain (Acute) Supratherapeutic INR (Acute) Hematoma of left buttock (Acute) Esophageal dysphagia JACK (dyspnea on exertion) Arthritis of foot History of colon polyps Family history of colonic polyps Encounter for pre-operative examination Rash Fever Suspected COVID-19 virus infection Colon polyps Atrial fibrillation, permanent (Acute) Venous insufficiency (Chronic) BMI 40.0-44.9, adult (Chronic) Hiatal hernia (Chronic) Vitamin D deficiency (Chronic) Elevated parathyroid hormone (Chronic) Elevated TSH (Chronic) GERD with stricture (Chronic) Chronic anticoagulation (Chronic) Severe obstructive sleep apnea (Chronic) Hyperlipidemia LDL goal <100 (Chronic) HTN (hypertension) (Chronic) Schatzki's ring (Chronic) Osteoarthritis (Chronic) Medical History Chronic venous insufficiency Schatzki's ring Osteoarthritis Chronic anticoagulation History of colonic polyps GERD (gastroesophageal reflux disease) no meds Deep vein thrombosis (DVT) S/P LEFT HILDA, 20 YEARS AGO, PT REMAINS ON COUMADIN (for a. fib) Sleep apnea non compliant with CPAP Hyperlipidemia Atrial fibrillation On Coumadin/metoprolol > no pacer > follows with [facility] Surgical History History of colonoscopy History of total hip replacement BILATERAL Hx of total knee arthroplasty bilat S/P lumbar laminectomy History of esophagogastroduodenoscopy With dilatation History of discectomy lumbar History of herniorrhaphy Ventral hernia repair Family History Unknown Atrial fibrillation Father Myocardial infarction Brother Kidney disease Other No family history of adverse response to anesthesia Denies family history of Ovarian cancer Prostate cancer Diabetes Breast cancer Lung cancer Colorectal cancer Hypertension Stroke Social History Smoking Status: Never smoker Second Hand Exposure: No; Do You Dip or Chew Tobacco: No; Hx Alcohol Use: Yes Alcohol type: wine and hard liquor Alcohol Intake Frequency: 2-3 x/Week Alcohol Intake Frequency Comment: once a week Hx Substance Use: No Preferred Language: German Communication Ability: Effective Visual Impairment: No Limitations Hearing Ability: Normal Grill Prep Cook Required: No Beliefs That Will Affect Care: None marital status: Current Living Situation: Spouse current occupational status: retired How many Children do You have: 2 Feels Safe at Home: Yes Childhood Exposure to Second-Hand Smoke: Yes Diet: regular Diet Comment: regular caffeine: Yes (iced tea) during the past year weight has: decreased > 10 lbs Dental Care, Regularly: Yes Physical Activity Frequency: 3-4 Times per Week Seatbelt Use: always Sunscreen Use: Yes Assistive Devices: Glasses Review of Systems Review of Systems: All systems reviewed & are unremarkable except as noted in Subjective Physical Exam Physical Exam: General: awake, alert, NAD HEENT: no scleral icterus, moist oral mucosa Neck: supple, trachea midline Heart: irregularly irregular, +left chest wall tenderness Lungs: CTA bilaterally Abdomen: soft, obese, NT, +BS Extremities: no significant pedal edema Skin: +faint ecchymosis over left anterior shoulder, +large hematoma left gluteal/lateral hip area Neurologic: no confusion or dysarthria, moving all extremities. Results & Data Results & Data Vital Signs (Past 12 Hours) Vital Signs Temp Pulse Pulse Resp BP BP Pulse Ox 05/20/25 11:57 105 H 16 168/98 H 05/20/25 10:45 90 16 134/82 97 05/20/25 09:22 98 H 05/20/25 08:45 36.8 C 108 H 16 148/83 H 93 05/20/25 08:43 36.8 C 103 H 17 148/83 H 97 O2 Del Method 05/20/25 11:57 05/20/25 10:45 05/20/25 09:22 05/20/25 08:45 Room Air 05/20/25 08:43 Room Air Laboratory Results Lab Results 05/20/25 Range/Units 09:30 WBC 10.81 H (4.8-10.8) K/ul RBC 4.01 L (4.70-6.10) M/uL Hgb 13.1 L (14.0-18.0) g/dl Hct 39.1 L (42.0-52.0) % MCV 97.5 (80.0-100.0) fL MCH 32.7 (25.0-34.0) pg MCHC 33.5 (32.0-36.0) g/dL RDW Std Deviation 46.5 H (36.4-46.3) fL RDW Coeff of Anna 13.1 (11.5-14.5) % Plt Count 210 (130-400) K/uL MPV 11.0 (9.4-12.4) fL Immature Gran % (Auto) 0.5 % Neut % (Auto) 84.2 % Lymph % (Auto) 5.8 % Preble % (Auto) 8.3 % Eos % (Auto) 0.8 % Baso % (Auto) 0.4 % Neut # (Auto) 9.10 H (1.40-6.50) K/uL Lymph # (Auto) 0.63 L (1.20-3.40) K/uL Preble # (Auto) 0.90 H (0.11-0.59) K/uL Eos # (Auto) 0.09 (0.00-0.50) K/uL Baso # (Auto) 0.04 (0.00-0.20) K/uL Immature Gran # (Auto) 0.05 (0.01-0.20) K/uL PT 12.4 H (9.0-12.0) Seconds INR 1.2 H (0.9-1.1) Sodium 139 (136-145) mmol/L Potassium 4.2 (3.5-5.1) mmol/L Chloride 104 (98-107) mmol/L Carbon Dioxide 27 (21-32) mmol/L Anion Gap 8 (3-11) BUN 16 (6-23) mg/dl Creatinine 0.72 (0.6-1.4) mg/dl Est Cr Clr Drug Dosing 118.6 ml/min eGFR 92.93 BUN/Creatinine Ratio 22.2 H (10-20) Glucose 102 H (70-99(Fasting)) mg/dl Calcium 8.9 (8.6-10.3) mg/dl Total Bilirubin 1.4 H (0.2-1.0) mg/dl AST 24 (13-39) U/L ALT 19 (7-52) U/L Alkaline Phosphatase 60 (34-104) U/L Troponin I High Sens 15.1 (0-20) pg/ml Total Protein 6.9 (6.0-8.3) gm/dl Albumin 3.7 (3.4-5.0) gm/dl Globulin 3.2 (2.5-4.0) gm/dl Albumin/Globulin Ratio 1.2 (0.9-2) Lipase 15 (11-82) U/L Diagnostic Findings Chest X-Ray 05/20/25 09:18 XR chest 1V portable HISTORY: 79 years-old Male Chest pain, nonspecific COMPARISON: 11/06/2017 TECHNIQUE: AP view of the chest FINDINGS: Cardiac silhouette is enlarged. No pneumothorax, pleural effusion or overt pulmonary edema. IMPRESSION: Cardiomegaly without acute process. ACT 112: Negative or not required by law. The above report was generated using voice recognition software. It may contain grammatical, syntax or spelling errors. Electronically signed by: Juan C Meredith M.D. 05/20/2025 9:[address] 05/20/25 09:59 CT SCAN OF THE CHEST WITH IV CONTRAST CLINICAL HISTORY: Fall. Chest pain. COMPARISON STUDY: Chest x-ray dated 05/20/2025 TECHNIQUE: Following the IV administration of 94 cc of Optiray 320, CT scan of the thorax was performed from the thoracic inlet to the upper abdomen. Images are reviewed in the axial, sagittal, and coronal planes. IV contrast was administered without complication. A dose lowering technique was utilized adhering to the principles of ALARA. There is streak artifact from the left arm which could not be elevated above the chest. The examination is compromised by motion artifact. CT DOSE: 1138.86 mGy.cm FINDINGS: Thyroid: Imaged portions of the thyroid gland are normal in size and attenuation. Thoracic aorta: There is atherosclerotic calcification of the thoracic aorta, which is normal in caliber and demonstrates standard 3-vessel arch anatomy. No dissection is seen. Pulmonary vasculature: The pulmonary trunk is normal in caliber. There are no filling defects identified in the central pulmonary vessels to indicate pulmonary embolus. Note that this examination was not protocoled for evaluation of the pulmonary arteries. Heart: The heart is enlarged and without pericardial effusion. The coronary arteries are densely calcified. Lungs and pleural spaces: Evaluation of the lung parenchyma is degraded by motion artifact. There is no airspace consolidation, pleural effusion, or pneumothorax. Secretions are noted in the trachea. There is bibasilar scarring/atelectasis. There are scattered calcified granulomas. Mediastinum: There is no mediastinal hematoma or lymphadenopathy. Brenda: Clear. Axillae: There is no axillary lymphadenopathy. Upper abdomen: Scattered hepatic cysts measuring up to 3.7 cm. Additional subcentimeter hepatic hypodensities also likely represent cysts but are too small for definitive characterization. A tiny hiatal hernia is noted. See report of abdominal CT performed concurrently for detailed intra-abdominal findings. Skeletal structures: The skeletal structures are osteopenic. There is a subacute/healing fracture of the left anterolateral sixth rib. No additional acute or subacute fracture is suspected involving the bony thorax. There are chronic/healed right-sided rib fractures. Degenerative change is seen in the shoulders and thoracic spine. Advanced degenerative change is seen at the sternoclavicular joints. No lytic or blastic bony lesions are seen. IMPRESSION: 1. There is a subacute/healing fracture of the left anterolateral 6th rib. 2. No additional acute or subacute fracture is seen. 3. There is no airspace consolidation, pleural effusion, or pneumothorax. 4. Cardiomegaly noting advanced coronary artery atherosclerosis. 5. Additional findings as above. ACT 112: Negative or not required by law. Electronically signed by: Max Mosher M.D. 05/20/2025 11:18 AM Medications Administered Discontinued Medications Fentanyl Citrate (Fentanyl Citrate Pf 100 Mcg/2 Ml Vial) 50 mcg IV NOW STA Stop: 05/20/25 09:19 Last Admin: 05/20/25 09:34 Dose: 50 mcg Documented By: erick Ioversol (Optiray 320 100ml) 94 ml IV ONCE ONE Stop: 05/20/25 10:58 Last Admin: 05/20/25 10:57 Dose: 94 ml Documented By: GIANNI
--- NOTE | 2025-05-20 12:35 | XRay Report ---
XR shoulder LT min 2V routine CLINICAL HISTORY: Left shoulder pain s/p fall COMPARISON: Left shoulder radiographs May 26, 2011. FINDINGS: Alignment of the left shoulder is anatomic. No acute fractures are identified. There is mo derate to severe osteoarthritis of the left acromioclavicular and glenohumeral joints. There are no o sseous lesions. IMPRESSION: 1. No fracture or dislocation within the left shoulder. 2. Moderate to severe left shoulder osteoarthritis. ACT 112: Negative or not required by law. Electronically signed by: Grant Ricks M.D. 05/20/2025 12:33 PM
[2025-05-20] MEDS ORDERED: FUROSEMIDE 40 MG TAB PO PRN (14:41)
[2025-05-20] MEDS: LIDOCAINE 5% 1 PATCH TD SCH (14:49)
[2025-05-20] MEDS: ACETAMINOPHEN 500 MG TAB PO SCH (14:49)
[2025-05-20] MEDS: WARFARIN SOD 5 MG TAB PO SCH (15:57)
[2025-05-20] MEDS: METOPROLOL TARTRATE 50 MG TAB PO SCH (20:58)
[2025-05-20] MEDS: REMOVE LIDODERM PATCH SCH (20:59)
[2025-05-21 07:46] LABS: Hematocrit (blood only) 34.9 % (42.0-52.0); Hemoglobin 12.1 g/dl (14.0-18.0); Immature Granulocytes # (auto) 0.04 K/uL (0.01-0.20); Immature Granulocytes % (auto) 0.5 %; Mean Corpuscular Hemoglobin 33.3 pg (25.0-34.0); Mean Corpuscular Volume 96.1 fL (80.0-100.0); Platelet Count 199 K/uL (130-400); RDW Standard Deviation 45.4 fL (36.4-46.3); Red Blood Count 3.63 M/uL (4.70-6.10); White Blood Count 8.67 K/ul (4.8-10.8)
[2025-05-21 08:03] LABS: Anion Gap 6.0 (3-11); Blood Urea Nitrogen 12.0 mg/dl (6-23); Calcium 8.5 mg/dl (8.6-10.3); Carbon Dioxide 28.0 mmol/L (21-32); Chloride 103.0 mmol/L (98-107); Creatinine Clr Calc Pharmacy 147.2 ml/min; Glucose 105.0 mg/dl (70-99(Fasting)); Potassium 3.9 mmol/L (3.5-5.1); Sodium 137.0 mmol/L (136-145)
[2025-05-21 08:15] LABS: INR 1.3 (0.9-1.1); Prothrombin Time 13.5 Seconds (9.0-12.0)
[2025-05-21] MEDS: ATORVASTATIN 40 MG TAB PO SCH (09:50)
[2025-05-21] MEDS: CHOLECALCIFEROL 25 MCG (1000 UNITS) TAB PO SCH (09:50)
--- NOTE | 2025-05-21 14:19 | Hospitalist Progress Note ---
Date of Service May 21, 2025 Assessment & Plan (1) Acute pain of left shoulder: (2) Ambulatory dysfunction: (3) Hematoma of left buttock: (4) Atrial fibrillation, permanent: (5) Hyperlipidemia LDL goal <100: (6) GERD with stricture: Plan This is a 79 y/o male with PAF on chronic AC, remote hx of DVT after HILDA, sleep apnea (not on CPAP), dyslipidemia, chronic venous insufficiency, and other history as outlined below who presents to the ED today with shoulder and chest pain. Pt with a mechanical fall four days ago, landing on his left side, and resultant left gluteal hematoma. INR was supratherapeutic in the ED last week, likely related to several supplements that he had been taking for possible neuropathy (and which he has since stopped). He has been using a walker to ambulate at home for the last few days. He presented to the ED today with bilateral shoulder and chest pain. Work-up in the ED showed a subacute/healing anterolateral left sixth rib fracture, troponin was normal. INR today was 1.2 - pt resumed warfarin yesterday, he denies taking aspirin. Referred for additional evaluation due to intractable pain and ambulatory dysfunction. #Mechanical Fall #Left gluteal hematoma #Subacute/healing left anterolateral 6th rib fracture #Left shoulder pain - Observe in med surg - PT/OT evaluations - Pain control - prn oxycodone, lidocaine patch, scheduled acetaminophen - Fall precautions - start incentive spirometer for rib fracture - medically stable for discharge, awaiting SNF placement #PAF on chronic anticoagulation - Will continue warfarin at the recommended 5 mg daily and monitor H&H - Continue metoprolol BID #Dyslipidemia - Chronic, stable - continue statin #GERD with hx of stricture - Chronic, stable - continue PPI I spent a total of 40 minutes in direct patient care, including [id number] time with the patient and/or family, reviewing medical records, ordering and reviewing diagnostic tests, and coordinating care with other healthcare providers. This time includes: history taking, physical examination, medical decision making, counseling, ECG interpretation, imaging interpretation, lab interpretation, orders, and education, excluding time spent in the performance of separately billed services. Admission and Anticipated Discharge Date Admission Date: May 20, 2025 Subjective Patient seen and examined at bedside. Patient doing ok today. States he had a mechanical fall. Is agreeable to rehab. Review of Systems Review of Systems: CONSTITUTIONAL: Patient denies fevers, chills, sweats and weight changes. EYES: Patient denies any visual symptoms. EARS, NOSE, AND THROAT: No difficulties with hearing. No symptoms of rhinitis or sore throat. CARDIOVASCULAR: Patient denies chest pains, palpitations, orthopnea and paroxysmal nocturnal dyspnea. RESPIRATORY: No dyspnea on exertion, no wheezing or cough. GI: No nausea, vomiting, diarrhea, constipation, abdominal pain, hematochezia or melena. : No urinary hesitancy or dribbling. No nocturia or urinary frequency. No abnormal urethral discharge. MUSCULOSKELETAL: shoulder and buttock pain NEUROLOGIC: No chronic headaches, no seizures. Patient denies numbness, tingling or weakness. PSYCHIATRIC: Patient denies problems with mood disturbance. No problems with anxiety. ENDOCRINE: No excessive urination or excessive thirst. DERMATOLOGIC: Patient denies any rashes or skin changes. Physical Exam Physical Exam: Gen: A&O 3 NAD HEENT: NCAT, EOMI, not icteric. External ears normal. No rhinorrhea. Moist mucous membranes. Neck: Supple, full range of motion, no observable masses, No meningeal sign. Lungs: No Respiratory distress. CV: RRR, no edema. Abdomen: Soft, nondistended, No rebound tenderness. MSK: left shoulder tender to palpation Skin: No rashes, petechiae, lesions. Normal color per patient. Neuro: Normal Gait, Grossly intact. Psych: Appropriate for situation. Results & Data Results & Data Vital Signs (Past 12 Hours) Vital Signs Temp Pulse Resp BP Pulse Ox O2 Del Method 05/21/25 08:32 Room Air 05/21/25 07:26 36.9 C 90 18 154/86 H 90 Room Air Laboratory Results -personally reviewed, downtrended WBC, Hgb slightly lower than yesterday Medications Administered Acetaminophen (Acetaminophen 500 Mg Tab) 1,000 mg PO Q8H [facility] Stop: 06/19/25 13:29 Last Admin: 05/21/25 12:08 Dose: 1,000 mg Documented By: Admin: 05/21/25 06:05 Dose: 1,000 mg Documented By: Admin: 05/20/25 20:58 Dose: 1,000 mg Documented By: Admin: 05/20/25 14:49 Dose: 1,000 mg Documented By: MACY Atorvastatin Calcium (Atorvastatin 40 Mg Tab) [facility] Stop: 06/20/25 08:59 Last Admin: 05/21/25 09:50 Dose: 40 mg Documented By: DANYA Lidocaine (Lidocaine 5% 1 Patch) 1 patch TD [facility] Stop: 06/19/25 13:29 Last Admin: 05/21/25 09:50 Dose: Not Given Documented By: Admin: 05/20/25 14:49 Dose: 1 patch Documented By: MACY Metoprolol Tartrate (Metoprolol Tartrate 50 Mg Tab) 50 mg PO BID [facility] Stop: 06/19/25 20:59 Last Admin: 05/21/25 09:50 Dose: 50 mg Documented By: Admin: 05/20/25 20:58 Dose: 50 mg Documented By: ANTON Miscellaneous (Remove Lidoderm Patch) 1 each N/A DAILY@2100 [facility] Stop: 06/19/25 20:59 Last Admin: 05/20/25 20:59 Dose: 1 each Documented By: ANTON Pantoprazole Sodium (Pantoprazole 40 Mg Tab) 40 mg PO DAILYBB [facility] Stop: 06/20/25 06:29 Last Admin: 05/21/25 06:05 Dose: 40 mg Documented By: ANTON Vitamin D (Cholecalciferol 25 Mcg (1000 Units) Tab) 50 mcg PO [facility] Stop: 06/20/25 08:59 Last Admin: 05/21/25 09:50 Dose: 50 mcg Documented By: DANYA Warfarin Sodium (Warfarin Sod 5 Mg Tab) 5 mg PO DAILY@1600 [facility] Stop: 06/19/25 15:59 Last Admin: 05/20/25 15:57 Dose: 5 mg Documented By: MACY
[2025-05-21 19:39] LABS: Creatine Kinase 65.0 U/L (30-223)
[2025-05-21 19:55] LABS: Thyroid Stimulating Hormone 5.694 uIu/ml (0.300-4.500)
[2025-05-21 20:05] LABS: Folate (Folic Acid),Ser orPlas 10.29 ng/ml (>5.38)
[2025-05-21 20:06] LABS: Vitamin B12 285.0 pg/ml (180-914)
[2025-05-22 07:59] VITALS: RESP 18
[2025-05-22 08:00] LABS: Anion Gap 6.0 (3-11); Blood Urea Nitrogen 15.0 mg/dl (6-23); Calcium 8.6 mg/dl (8.6-10.3); Carbon Dioxide 27.0 mmol/L (21-32); Chloride 106.0 mmol/L (98-107); Creatinine Clr Calc Pharmacy 125.6 ml/min; Glucose 96.0 mg/dl (70-99(Fasting)); Potassium 4.1 mmol/L (3.5-5.1); Sodium 139.0 mmol/L (136-145)
[2025-05-22 08:05] LABS: INR 1.3 (0.9-1.1); Prothrombin Time 13.6 Seconds (9.0-12.0)
--- NOTE | 2025-05-22 11:50 | Orthopedic Consultation ---
Date of Service May 22, 2025 Assessment & Plan (1) Acute pain of left shoulder: (2) Hematoma of left buttock: Plan * Case/imaging reviewed and discussed with Dr Juares * Left shoulder pain - History exam consistent with rotator cuff tear - No evidence of joint infection - Recommend pain management, activity as tolerated, PT/OT eval - No further imaging or workup indicated, no plans for surgical intervention * Left thigh hematoma - Continue service management - Ice, pain control - Activity as tolerated * Daily treatment: Physical Therapy/ Occupational Therapy per protocol * Pain control * Remainder care per primary team * Can follow-up with orthopedic team as needed History of Present Illness Reason for Consultation: Left shoulder pain Requesting Physician: . Attending Physician: Levi Pike MD . Patient is a 79 y/o male with left shoulder pain. PMH including PAF on chronic AC, remote hx of DVT after HILDA, sleep apnea (not on CPAP), dyslipidemia, chronic venous insufficiency. Presents to hospital with left shoulder and left buttock pain after a fall. Patient reports he fell while walking into his house while carrying groceries, landing on his left side and injuring his left buttock and shoulder regions. Brought to ED for evaluation. ED workup including x-ray of left shoulder demonstrating moderate osteoarthritis but no acute fracture, CT left hip demonstrating intact HILDA prosthesis gluteal hematoma. Admitted to hospital medicine team secondary to amatory dysfunction. Patient noted to have elevated CRP of 14, WBC 8. Orthopedics consulted for management recommendations, and evaluation for possible left septic shoulder. At time of exam patient sitting comfortably in bed, no acute distress. Endorses moderate pain of the left shoulder as well as left gluteal region. Weakness and pain in the shoulder with attempted use. Denies tingling or numbness in the left upper extremity.. Allergies Allergy/AdvReac Type Severity Reaction Status Date / Time No Known Drug Allergies Allergy Verified 05/20/25 11:39 Home Medications Medication Instructions Recorded Confirmed Type metoprolol tartrate 50 mg tablet 50 mg PO BID #180 tabs 12/26/22 05/20/25 Rx cholecalciferol (vitamin D3) 25 50 mcg PO QAM 10/02/23 05/20/25 History mcg (1,000 unit) capsule furosemide 40 mg tablet 40 mg PO DAILY PRN Edema 12/31/24 05/20/25 History atorvastatin 40 mg tablet 40 mg PO QAM 05/20/25 05/20/25 History oxycodone 5 mg capsule 5 mg PO Q6 PRN Pain 05/20/25 05/20/25 History pantoprazole 40 mg tablet,delayed 40 mg PO DAILYBB 05/20/25 05/20/25 History release warfarin 5 mg tablet (Jantoven) 5 mg PO QPM 05/20/25 05/20/25 History Past Med/Surg History Problem List (Updated 05/20/25 @ 12:41 by Desire Tadeo MD) Ambulatory dysfunction (Acute) Acute pain of left shoulder (Acute) Chest pain (Acute) Supratherapeutic INR (Acute) Hematoma of left buttock (Acute) Esophageal dysphagia JACK (dyspnea on exertion) Arthritis of foot History of colon polyps Family history of colonic polyps Encounter for pre-operative examination Rash Fever Suspected COVID-19 virus infection Colon polyps Atrial fibrillation, permanent (Acute) Venous insufficiency (Chronic) BMI 40.0-44.9, adult (Chronic) Hiatal hernia (Chronic) Vitamin D deficiency (Chronic) Elevated parathyroid hormone (Chronic) Elevated TSH (Chronic) GERD with stricture (Chronic) Chronic anticoagulation (Chronic) Severe obstructive sleep apnea (Chronic) Hyperlipidemia LDL goal <100 (Chronic) HTN (hypertension) (Chronic) Schatzki's ring (Chronic) Osteoarthritis (Chronic) Medical History Chronic venous insufficiency Schatzki's ring Osteoarthritis Chronic anticoagulation History of colonic polyps GERD (gastroesophageal reflux disease) no meds Deep vein thrombosis (DVT) S/P LEFT HILDA, 20 YEARS AGO, PT REMAINS ON COUMADIN (for a. fib) Sleep apnea non compliant with CPAP Hyperlipidemia Atrial fibrillation On Coumadin/metoprolol > no pacer > follows with [facility] History of colonoscopy History of total hip replacement BILATERAL Hx of total knee arthroplasty bilat S/P lumbar laminectomy History of esophagogastroduodenoscopy With dilatation History of discectomy lumbar History of herniorrhaphy Ventral hernia repair Family History Unknown Atrial fibrillation Father Myocardial infarction Brother Kidney disease Other No family history of adverse response to anesthesia Denies family history of Ovarian cancer Prostate cancer Diabetes Breast cancer Lung cancer Colorectal cancer Hypertension Stroke Social History Smoking Status: Never smoker Second Hand Exposure: No; Do You Dip or Chew Tobacco: No; Hx Alcohol Use: Yes Alcohol type: wine and hard liquor Alcohol Intake Frequency: 2-3 x/Week Alcohol Intake Frequency Comment: once a week Hx Substance Use: No Preferred Language: Latvian Communication Ability: Effective Visual Impairment: No Limitations Hearing Ability: Normal [employer] Analyst Required: No Beliefs That Will Affect Care: None marital status: Current Living Situation: Spouse current occupational status: retired How many Children do You have: 2 Other Information That Helps Us Care for You: No Feels Safe at Home: Yes Safety Concerns: Feels Safe At This Time Childhood Exposure to Second-Hand Smoke: Yes Diet: regular Diet Comment: regular caffeine: Yes (iced tea) during the past year weight has: decreased > 10 lbs Dental Care, Regularly: Yes Physical Activity Frequency: 3-4 Times per Week Seatbelt Use: always Sunscreen Use: Yes Assistive Devices: Cane, Crutches and Walker Review of Systems All systems reviewed & are unremarkable except as noted in HPI & below. Physical Exam . * General: Alert and oriented, no acute distress * Constitutional: well-developed, well-nourished. * Respiratory: Normal respiratory effort, no distress * Gastrointestinal: No tenderness to palpation, no rigidity or guarding. * Skin: No rash or lesion. * Neurologic: Grossly normal * Musculoskeletal: - Left shoulder region with no obvious deformity, ecchymosis to the anterior shoulder. Otherwise no deformity or overlying skin changes to the remainder of the left arm. TTP superior and posterior aspect of the shoulder, RTC tendon. Otherwise no tenderness of the proximal humerus/upper arm, elbow, forearm, wrist/hand. AROM shoulder flexion painful but possible to reach 60 degrees. AROM elbow, wrist/hand intact. Sensation intact radial/median/ulnar nerve dissipations. Brisk capillary refill. - Left hip region with large posterior lateral ecchymosis. Intact HILDA incision. Diffuse tenderness posterior lateral thigh. No pain with logroll. AROM foot/ankle intact. Sensation intact plantar/dorsal foot. Brisk capillary refill. Results & Data Results & Data Laboratory Results 05/20 XR L shoulder IMPRESSION: 1. No fracture or dislocation within the left shoulder. 2. Moderate to severe left shoulder osteoarthritis. 05/16 XR L hip IMPRESSION: 1. No acute osseous or soft tissue abnormality. 2. Left status post hip arthroplasty with no loosening 3. Degenerative changes in visualized hip joint in the form of marginal osteophytes 05/16 CT abdomen/pelvis IMPRESSION: 1. Left gluteal muscles appear bulky and enlarged with suspicious hyperdensity within, possibly hemorrhage. Ultrasound is suggested for better evaluation. 2. Multiple small uncomplicated sigmoid colonic diverticulosis 3. Multiple hepatic cysts. 4. Bilateral total hip replacement. No loosening of orthopedic metallic hardware. 5. Degenerative changes involving visualized spine. Diagnostic Findings . PG Care Time/CCT Total # of Minutes Spent Total Time Spent with Patient: Total time spent is greater than 50% in coordination of care (as documented) at patient's floor/unit and/or counseling patient: [place] [address] IN/OBS CONSULT LVL 3,45M Patient Type New History Expanded Problem Focused Exam Expanded Problem Focused Medical Decision Making Low Complexity Diagnoses Acute pain of left shoulder M25.512 Hematoma of left buttock S30.0XXA
--- NOTE | 2025-05-22 18:31 | Hospitalist Progress Note ---
Date of Service May 22, 2025 Assessment & Plan (1) Acute pain of left shoulder: (2) Ambulatory dysfunction: (3) Hematoma of left buttock: (4) Atrial fibrillation, permanent: (5) Hyperlipidemia LDL goal <100: (6) GERD with stricture: Plan This is a 79 y/o male with PAF on chronic AC, remote hx of DVT after HILDA, sleep apnea (not on CPAP), dyslipidemia, chronic venous insufficiency, and other history as outlined below who presents to the ED today with shoulder and chest pain. Pt with a mechanical fall four days ago, landing on his left side, and resultant left gluteal hematoma. INR was supratherapeutic in the ED last week, likely related to several supplements that he had been taking for possible neuropathy (and which he has since stopped). He has been using a walker to ambulate at home for the last few days. He presented to the ED today with bilateral shoulder and chest pain. Work-up in the ED showed a subacute/healing anterolateral left sixth rib fracture, troponin was normal. INR today was 1.2 - pt resumed warfarin yesterday, he denies taking aspirin. Referred for additional evaluation due to intractable pain and ambulatory dysfunction. #Mechanical Fall #Left gluteal hematoma #Subacute/healing left anterolateral 6th rib fracture #Left shoulder pain - PT/OT evaluations - Pain control - prn oxycodone, lidocaine patch, scheduled acetaminophen - Fall precautions - start incentive spirometer for rib fracture - medically stable for discharge, awaiting SNF placement #Elevated CRP -unclear clinical correlate -could be from hematoma, fractures, severe RA, other autoimmune process Plan: -check rheumatoid factor, autoimmune panel -monitor #PAF on chronic anticoagulation - Will continue warfarin at the recommended 5 mg daily and monitor H&H - Continue metoprolol BID #Dyslipidemia - Chronic, stable - continue statin #GERD with hx of stricture - Chronic, stable - continue PPI I spent a total of 50 minutes in direct patient care, including [id number] time with the patient and/or family, reviewing medical records, ordering and reviewing diagnostic tests, and coordinating care with other healthcare provide rs. This time includes: history taking, physical examination, medical decision making, counseling, ECG interpretation, imaging interpretation, lab interpretation, orders, and education, excluding time spent in the performance of separately billed services. Admission and Anticipated Discharge Date Admission Date: May 20, 2025 Subjective Patient seen and examined at bedside. Patient doing ok today. Feels pain in shoulder continues to be severe. Review of Systems Review of Systems: CONSTITUTIONAL: Patient denies fevers, chills, sweats and weight changes. EYES: Patient denies any visual symptoms. EARS, NOSE, AND THROAT: No difficulties with hearing. No symptoms of rhinitis or sore throat. CARDIOVASCULAR: Patient denies chest pains, palpitations, orthopnea and paroxysmal nocturnal dyspnea. RESPIRATORY: No dyspnea on exertion, no wheezing or cough. GI: No nausea, vomiting, diarrhea, constipation, abdominal pain, hematochezia or melena. : No urinary hesitancy or dribbling. No nocturia or urinary frequency. No abnormal urethral discharge. MUSCULOSKELETAL: shoulder and buttock pain NEUROLOGIC: No chronic headaches, no seizures. Patient denies numbness, tingling or weakness. PSYCHIATRIC: Patient denies problems with mood disturbance. No problems with anxiety. ENDOCRINE: No excessive urination or excessive thirst. DERMATOLOGIC: Patient denies any rashes or skin changes. Physical Exam Physical Exam: Gen: A&O 3 NAD HEENT: NCAT, EOMI, not icteric. External ears normal. No rhinorrhea. Moist mucous membranes. Neck: Supple, full range of motion, no observable masses, No meningeal sign. Lungs: No Respiratory distress. CV: RRR, no edema. Abdomen: Soft, nondistended, No rebound tenderness. MSK: left shoulder tender to palpation Skin: No rashes, petechiae, lesions. Normal color per patient. Neuro: Normal Gait, Grossly intact. Psych: Appropriate for situation. Results & Data Results & Data Vital Signs (Past 12 Hours) Vital Signs Temp Pulse Resp BP Pulse Ox O2 Del Method 05/22/25 15:38 36.9 C 90 18 137/80 94 Room Air 05/22/25 07:57 36.4 C L 85 18 131/80 94 Room Air Laboratory Results -personally reviewed, INR of 1.3, CRP of 13.5 without clear correlation, TSH suggestive of subclinical hypothyroidism Medications Administered Acetaminophen (Acetaminophen 500 Mg Tab) 1,000 mg PO Q8H ADAIR Stop: 06/19/25 13:29 Last Admin: 05/22/25 15:34 Dose: 1,000 mg Documented By: Admin: 05/22/25 05:40 Dose: 1,000 mg Documented By: Admin: 05/21/25 21:22 Dose: 1,000 mg Documented By: Admin: 05/21/25 12:08 Dose: 1,000 mg Documented By: Admin: 05/21/25 06:05 Dose: 1,000 mg Documented By: Admin: 05/20/25 20:58 Dose: 1,000 mg Documented By: Admin: 05/20/25 14:49 Dose: 1,000 mg Documented By: MACY Atorvastatin Calcium (Atorvastatin 40 Mg Tab) 40 mg PO QAM ADAIR Stop: 06/20/25 08:59 Last Admin: 05/22/25 08:27 Dose: 40 mg Documented By: Admin: 05/21/25 09:50 Dose: 40 mg Documented By: DANYA Lidocaine (Lidocaine 5% 1 Patch) 1 [facility] Stop: 06/19/25 13:29 Last Admin: 05/22/25 08:25 Dose: Not Given Documented By: Admin: 05/21/25 09:50 Dose: Not Given Documented By: Admin: 05/20/25 14:49 Dose: 1 patch Documented By: MACY Metoprolol Tartrate (Metoprolol Tartrate 50 Mg Tab) 50 mg PO BID [facility] Stop: 06/19/25 20:59 Last Admin: 05/22/25 08:27 Dose: 50 mg Documented By: Admin: 05/21/25 21:22 Dose: 50 mg Documented By: Admin: 05/21/25 09:50 Dose: 50 mg Documented By: Admin: 05/20/25 20:58 Dose: 50 mg Documented By: ANTON Miscellaneous (Remove Lidoderm Patch) 1 each N/A DAILY@2100 [facility] Stop: 06/19/25 20:59 Last Admin: 05/21/25 21:23 Dose: Not Given Documented By: Admin: 05/20/25 20:59 Dose: 1 each Documented By: ANTON Pantoprazole Sodium (Pantoprazole 40 Mg Tab) 40 mg PO DAILYBB [facility] Stop: 06/20/25 06:29 Last Admin: 05/22/25 05:40 Dose: 40 mg Documented By: Admin: 05/21/25 06:05 Dose: 40 mg Documented By: ANTON Vitamin D (Cholecalciferol 25 Mcg (1000 Units) Tab) 50 mcg PO QAM [facility] Stop: 06/20/25 08:59 Last Admin: 05/22/25 08:27 Dose: 50 mcg Documented By: Admin: 05/21/25 09:50 Dose: 50 mcg Documented By: DANYA Warfarin Sodium (Warfarin Sod 5 Mg Tab) 5 mg PO DAILY@1600 [facility] Stop: 06/19/25 15:59 Last Admin: 05/22/25 15:34 Dose: 5 mg Documented By: Admin: 05/21/25 17:31 Dose: 5 mg Documented By: Admin: 05/20/25 15:57 Dose: 5 mg Documented By: MACY
[2025-05-22 22:46] VITALS: TEMP 97.7
--- NOTE | 2025-05-23 06:34 | Electrocardiogram Report ---
Test Reason : Blood Pressure : */* mmHG Vent. Rate : 98 BPM Atrial Rate : * BPM P-R Int : * ms QRS Dur : 154 ms QT Int : 398 ms P-R-T Axes : * 52 4 degrees QTcB Int : 508 ms Atrial fibrillation Right bundle branch block Abnormal ECG When compared with ECG of 16-May-2025 03:58, Borderline criteria for Inferior infarct are no longer Present Confirmed by Rambo Booth ([id number]) on 05/23/2025 6:34:16 AM Referred By: REFERRED SELF Confirmed By: Rambo Booth
[2025-05-23 08:11] VITALS: O2SAT 95
[2025-05-23 09:15] LABS: Hematocrit (blood only) 38.7 % (42.0-52.0); Hemoglobin 13.2 g/dl (14.0-18.0); Immature Granulocytes # (auto) 0.02 K/uL (0.01-0.20); Immature Granulocytes % (auto) 0.4 %; Mean Corpuscular Hemoglobin 33.1 pg (25.0-34.0); Mean Corpuscular Volume 97.0 fL (80.0-100.0); Platelet Count 236 K/uL (130-400); RDW Standard Deviation 46.1 fL (36.4-46.3); Red Blood Count 3.99 M/uL (4.70-6.10); White Blood Count 5.40 K/ul (4.8-10.8)
[2025-05-23 09:31] LABS: Anion Gap 7.0 (3-11); Blood Urea Nitrogen 15.0 mg/dl (6-23); Calcium 8.9 mg/dl (8.6-10.3); Carbon Dioxide 26.0 mmol/L (21-32); Chloride 104.0 mmol/L (98-107); Creatinine Clr Calc Pharmacy 120.3 ml/min; Glucose 123.0 mg/dl (70-99(Fasting)); Potassium 4.1 mmol/L (3.5-5.1); Sodium 137.0 mmol/L (136-145)
[2025-05-23 09:42] LABS: INR 1.4 (0.9-1.1); Prothrombin Time 14.4 Seconds (9.0-12.0)
[2025-05-23 10:12] VITALS: BP 125/71; PULSE 71
--- NOTE | 2025-05-23 16:49 | Discharge Summary ---
Discharge Summary Date of Service May 23, 2025 Principal Dx & Hospital Course #1 = Principal Diagnosis (1) Acute pain of left shoulder: (2) Ambulatory dysfunction: (3) Hematoma of left buttock: (4) Atrial fibrillation, permanent: (5) Hyperlipidemia LDL goal <100: (6) GERD with stricture: Plan This is a 79 y/o male with PAF on chronic AC, remote hx of DVT after HILDA, sleep apnea (not on CPAP), dyslipidemia, chronic venous insufficiency, and other history as outlined below who presents to the ED today with shoulder and chest pain. Pt with a mechanical fall four days ago, landing on his left side, and resultant left gluteal hematoma. INR was supratherapeutic in the ED last week, likely related to several supplements that he had been taking for possible neuropathy (and which he has since stopped). He has been using a walker to ambulate at home for the last few days. He presented to the ED today with bilateral shoulder and chest pain. Work-up in the ED showed a subacute/healing anterolateral left sixth rib fracture, troponin was normal. INR today was 1.2 - pt resumed warfarin yesterday, he denies taking aspirin. Referred for additional evaluation due to intractable pain and ambulatory dysfunction. #Mechanical Fall #Left gluteal hematoma #Subacute/healing left anterolateral 6th rib fracture #Left shoulder pain - PT/OT evaluations - Pain control - prn oxycodone, lidocaine patch, scheduled acetaminophen - Fall precautions - start incentive spirometer for rib fracture - medically stable for discharge, awaiting SNF placement #Elevated CRP -unclear clinical correlate -could be from hematoma, fractures, severe RA, other autoimmune process Plan: -check rheumatoid factor, autoimmune panel -monitor #PAF on chronic anticoagulation - Will continue warfarin at the recommended 5 mg daily and monitor H&H - Continue metoprolol BID #Dyslipidemia - Chronic, stable - continue statin #GERD with hx of stricture - Chronic, stable - continue PPI Notes For Next Care Provider This is a 79 y/o male with PAF on chronic AC, remote hx of DVT after HILDA, sleep apnea (not on CPAP), dyslipidemia, chronic venous insufficiency, and other history as outlined below who presents to the ED today with shoulder and left butt pain. Had recent fall, admtited for PT/OT and pain control. PT/OT initially recommended rehab but patient improved rapidely with some pain control and rehabilitation. Patient functioning near functional baseline prior to discharge per PT/OT and nursing staff. Insurance denied rehab. on 05/23/2025 patient medically stable for discharge home. To do: [ ] f/u with PCP, ortho -f/u elevated CRP Medication Changes From Visit -lidocaine patch Admission HPI Per Admitting Provider This is a 79 y/o male with PAF on chronic AC, remote hx of DVT after HILDA, sleep apnea (not on CPAP), dyslipidemia, chronic venous insufficiency, and other history as outlined below who presents to the ED today with shoulder and chest pain. Four days ago, pt was bringing in groceries when he lost his balance on the steps into the house and fell into a concrete wall on his left side. He was seen in the ED late that night (early on 05/16) and found to have a supratherapeutic INR. He was noted to have possible left gluteal hemorrhage vs. hematoma via CT, ED provider felt active hemorrhage unlikely so pt was given 2.5 mg oral vitamin K and discharged home with a walker. Pt spoke with anticoagulation clinic later that day and warfarin was held for two days. Pt reports restarting it yesterday. He has noted that the hematoma seems to be increasing in size daily. He spoke with an on-call provider over the weekend who reassured pt that this was to be expected and prescribed oxycodone since pt felt like Tylenol was not adequately controlling his pain. He has been using the walker to ambulate at home, which he does not usually use. Today, when he got up, he noted significant pain in his bilateral shoulders and arms and across his chest. Because of this pain, he came to the ED for evaluation. Currently the chest pain has resolved but he has persistent pain in the left shoulder, which he currently rates as 9/10 even after a dose of IV fentanyl in the ED. He has taken 9 of the 10 prescribed oxycodone tablets over the last two days. Pt denies significant shortness of breath, FARIA, dizziness, N/V/D, constipation, urinary symptoms. His appetite is at baseline. He reports using the prn furosemide approximately every other day for edema. Discharge Exam Gen: A&O 3 NAD HEENT: NCAT, EOMI, not icteric. External ears normal. No rhinorrhea. Moist mucous membranes. Neck: Supple, full range of motion, no observable masses, No meningeal sign. Lungs: No Respiratory distress. CV: RRR, no edema. Abdomen: Soft, nondistended, No rebound tenderness. MSK: left shoulder tender to palpation Skin: No rashes, petechiae, lesions. Normal color per patient. Neuro: Normal Gait, Grossly intact. Psych: Appropriate for situation. Updated Medication List Medication Instructions Recorded Confirmed Type metoprolol tartrate 50 mg tablet 50 mg PO BID #180 tabs 12/26/22 05/20/25 Rx cholecalciferol (vitamin D3) 25 50 mcg PO QAM 10/02/23 05/20/25 History mcg (1,000 unit) capsule furosemide 40 mg tablet 40 mg PO DAILY PRN Edema 12/31/24 05/20/25 History atorvastatin 40 mg tablet 40 mg PO QAM 05/20/25 05/20/25 History oxycodone 5 mg capsule 5 mg PO Q6 PRN Pain 05/20/25 05/20/25 History pantoprazole 40 mg tablet,delayed 40 mg PO DAILYBB 05/20/25 05/20/25 History release warfarin 5 mg tablet (Jantoven) 5 mg PO QPM 05/20/25 05/20/25 History lidocaine 5 % topical patch 1 patch transdermal QAM #15 ea 05/23/25 Rx Hospital Stay Data Consultations 05/20/25 12:17 ED Decision to Admit Stat 05/22/25 08:12 Consult Orthopedic Surgery Routine Diagnostic Imagining Performed 05/20/25 09:59 CT chest diagnostic w con Stat Pending Results Patient Have Any Pending Studies at Discharge: No Discharge Instructions Given to Patient (Per Discharging Provider) Diagnosis: left hip hematoma/contusion, severe osteoarthritis, ambulatory dysfunction Follow Ups: PCP, orthopaedics Incidentals: elevated CRP, left 6th rib fracture, severe CAD 1. Please follow up with PCP, ortho. 2. Stay hydrated! 3. Take medications as prescribed. Total Time Total Time Spent Total Time Spent (In Minutes): I spent a total of 35 minutes in direct patient care, including [id number] time with the patient and/or family, reviewing medical records, ordering and reviewing diagnostic tests, and coordinating care with other healthcare providers. This time includes: history taking, physical examination, medical decision making, counseling, ECG interpretation, imaging interpretation, lab interpretation, orders, and education, excluding time spent in the performance of separately billed services.
[2025-05-28 14:17] LABS: Anti Nuclear Antibody Screen NEGATIVE (NEGATIVE); Chromatin Antibody <1.0 NEG AI (<1.0 NEG); Sm Antibody <1.0 NEG AI (<1.0 NEG)
== END 2025-05-23 13:48 | disposition home health service (06) ==
LOC: ED 09:02 → EDINP 09:02 → SUATTDRO 12:49 → 3N 14:40